=== PATIENT | male | born 2000 | race African-American/Black ===

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

== ENCOUNTER 2021-04-02 22:27 | Emergency (ER) | payer OTHER ==
[~2021-04-02] VITALS: Ht 185.4 cm; Wt 68.0 kg
[~2021-04-02 22:27] MED LIST: DOXYCYCLINE 10100 MG PO
[2021-04-03 00:17] VITALS: BP 109/62
== END 2021-04-03 00:19 ==
LOC: ER 22:27
DX: R22.0 Localized swelling, mass and lump, head (principal); R68.84 Jaw pain; Z91.010 Allergy to peanuts; Z91.013 Allergy to seafood

== ENCOUNTER 2021-08-22 09:41 | Emergency (ER) | payer OTHER ==
[~2021-08-22] VITALS: Ht 185.4 cm; Wt 63.5 kg
[2021-08-22 09:43] VITALS: BP 107/77
[2021-08-22] MEDS ORDERED: DOXYCYCLINE 10100 MG PO ×2 (10:15→14:20)
== END 2021-08-22 10:30 | disposition home or self-care (01) ==
LOC: ER 09:41
DX: A74.89 Other chlamydial diseases (principal); F17.210 Nicotine dependence, cigarettes, uncomplicated; Z76.0 Encounter for issue of repeat prescription; Z91.010 Allergy to peanuts; Z91.013 Allergy to seafood